=== PATIENT | female | born 1980 | race Caucasian/White ===

== ENCOUNTER 2017-06-09 22:13 | Emergency (ER) | payer OTHER | END 2017-06-10 00:56 | disposition home or self-care (01) | LOC: FER 22:13 | DX: K02.9 Dental caries, unspecified (principal); H57.10 Ocular pain, unspecified eye; R51 Headache; R07.0 Pain in throat; F17.210 Nicotine dependence, cigarettes, uncomplicated | CPT/HCPCS: J1885 ==